=== PATIENT | female | born 1995 | race Caucasian/White ===

== ENCOUNTER 2016-05-10 20:07 | Emergency (ER) | payer OTHER ==
[~2016-05-10] VITALS: Ht 170.2 cm; Wt 68.0 kg
[~2016-05-10 20:07] MED LIST: AMOXICILLIN500 M3 PO; AMOXIL500 MG PO; AURALGAN 14 ML14 ML AS; BACTRIM DS TAB1 EACH PO; DOCUSATE SODIU100 MG PO; MOTRIN 800MG T800 MG PO; PERCOCET 325 MG1 TA2 PO; PREDNISONE10 M2 PO
[2016-05-10 20:17] VITALS: BP 119/71
--- NOTE | 2016-05-10 21:11 | ED INFLUENZA/URI COMPLAINT ---
History of Present Illness General Chief Complaint: General Adult Stated Complaint: ?SEIZURE 3DAYS AGO, NOW BODY SORE,LÓPEZ,VOMITING Source: patient, old records Exam Limitations: no limitations Vital Signs & Intake/Output Vital Signs & Intake/Output Vital Signs Date Time Temp Pulse Resp B/P Pulse O2 O2 Flow FiO2 Ox Delivery Rate 05/10 2016 99.7 98 18 119/71 Room Air Allergies Coded Allergies: NO KNOWN ALLERGIES (10/31/14) Reconcile Medications Amoxicillin 500 MG TABLET 1 TAB PO TID ABCESS Docusate Sodium 100 MG SGL 100 MG PO AT BEDTIME NEEDED PRN STOOL SOFTENER Oseltamivir Phosphate (Tamiflu) 75 MG CAPSULE 1 CAP PO BID influenza OXYCODONE HCL/ACETAMINOPHEN (Percocet 5-325 MG Tablet) 325 MG/5 MG TAB 1 TAB PO Q4P PRN PAIN SCALE 7-8 Prednisone 10 MG TABLET 1 TAB PO DAILY POISON TABITHA TAKE 4 TABS FOR 3 DAYS THEN TAKE 3 TABS FOR 3 DAYS THEN TAKE 2 TABS FOR 3 DAYS THEN TAKE 1 TAB FOR 3 DAYS Sulfamethoxazole/Trimethoprim (Bactrim Ds Tablet) 1 EACH TABLET 1 TAB PO BID ABCESS Yibuprofen (Motrin 800MG Tab) 800 MG TAB 800 MG PO Q6P PRN PAIN SCALE 4-6 Triage Note: PT TO ED WITH MULTIPLE COMPLAINTS:FATIGUE, HEADACHE, JOINT PAIN, ALL EXTEMETIES HURT, PAIN ON SIDE OF LEFT BREAST. STATES WAS RACHING UP TO SHUT OFF A LIGHT AND "MY BODY JUST STARTED SHAKING WHILE I WAS WALKING. AND THEN I JUST SNAPPED OUT OF IT. I THOUGHT I MIGHT HAVE HAD A MUSCLE SPASM" DENIES LOC DURING EPISODE, DENIES FALL DURING EPISODE. STATES SOMETIMES GETS LIGHT TREMORS THAT STOP ON THEIR OWN. DENIES DIZZINESS. UNSURE OF VEVERS AT HOME. TEMP 99.7 TA IN TRIAGE. COUGH NOTED. DENIES SORE THROAT Triage Nurses Notes Reviewed? yes Onset: Abrupt Duration: day(s): (1), constant Timing: recent history Severity: mild, moderate Severity Numbers: 4 No Modifying Factors: none Associated Symptoms: cough, fever/chills, muscle aches, nasal congestion, nasal drainage : No Patient currently breastfeeds: No HPI: This is a 20-year-old female who presents to emergency room complaining of a cough nonproductive for the past 1 week associated with generalized bodyaches congestion and rhinorrhea subjective fever chills since yesterday. The patient states that she was walking in her house going to turn off a light switch when she began to shake. The patient did not fall to the ground or lose consciousness during this episode. She denies any chest pain shortness of breath urinary symptoms abdominal pain nausea vomiting or diarrhea. She is not taken anything for her symptoms. There are multiple sick contacts at home with similar symptoms there are no modifying factors or associated symptoms otherwise. Past History Travel History Traveled to [place] past 21 day No Medical History Any Pertinent Medical History? see below for history Neurological: NONE EENT: NONE Cardiovascular: NONE Respiratory: NONE Gastrointestinal: NONE Hepatic: NONE Renal: NONE Musculoskeletal: NONE Psychiatric: NONE Endocrine: NONE Blood Disorders: NONE Cancer(s): NONE MEDICAL SUPERINTENDENT/Reproductive: NONE Surgical History Surgical History: non-contributory, N Psychosocial History What is your primary language Uzbek Tobacco Use: Current Daily Use Daily Tobacco Use Amount/Type: =< 4 Cigarettes daily ETOH Use: occasional use Illicit Drug Use: denies illicit drug use Family History Hx Contributory? No Review of Systems Review of Systems Constitutional: Reports: see HPI. All Other Systems: Reviewed and Negative Comments Review of systems: See HPI, All other systems negative. Constitutional, chills fever, no malaise HEENT: No visual changes no sore throat congestion, Cardiovascular: No chest pain , no palpitation , Skin, no rashes, no change in skin Respiratory: No dyspnea ncough no sputum no hemoptysis GI: No nausea no vomiting, no diarrhea, : No dysuria Muscle skeletal: No joint pain, no joint swelling, no back pain, no neck pain, Neurologic: No numbness no headache Psych: No stress Heme/endocrine: No bruising no bleeding Immunology: No lymphadenopathy Physical Exam Physical Exam General Appearance: well developed/nourished, alert, awake, comfortable Ears, Nose, Throat: normal ENT inspection, moist mucous membrane, hearing grossly normal, Tympanic normal, pharynx normal Comments: Well-developed well-nourished patient in no apparent distress. Head/Face: Atraumatic, no maxillary/frontal sinus tenderness, no facial swelling Eyes: PERRL, EOMI, no conjunctival injection. No nystagmus Ear:External auditory canal and Tympanic membranes clear, no erythema, no FB. Nose: atraumatic.Normal inspection: No bleeding Throat: Moist mucous membranes.Pharynx normal. No pharyngeal erythema/exudate seen. No stridor/drooling or assymetry. No swelling or edema. Neck: Supple, no lymphadenopathy, FROM Back: FROM, Nontender Cardiovascular: Regular rate and rhythms no murmurs rubs or gallops, Respiratory: No respiratory distress. Patient speaking in full complete sentences. Breath sounds clear to auscultation bilaterally: NO W/R/R Extremities: full range of motion Neuro: Alert and oriented x3 Skin: Warm & dry;No appreciable rash on exposed skin Psych: Mood affect normal, normal memory normal judgment. Core Measures Severe Sepsis Present: No Septic Shock Present: No Progress Differential Diagnosis: influenza, otitis, pneumonia, pharyngitis, sinusitis, bronchitis Plan of Care: Orders Procedure Date/time Status RAPID VIRAL INFLUENZA A 05/10 2035 Complete Sent from triage patient clinically appears well discussed with the patient that her episode does not sound consistent with a seizure. Discussed with her her flu swab results need for close HER primary care physician Tylenol Motrin for subjective fevers chills she is afebrile nontoxic appearing here. Prescription for Tamiflu was called into her pharmacy they feel comfortable with plan discussed with herneed to return anytime sooner with any concerns cleared for discharge (BECCA MARTINEZ,RASHI) Initial ED EKG: none Departure Departure Time of Disposition: 2129 Disposition: HOME OR SELF CARE Condition: Stable Clinical Impression Primary Impression: Influenza Referrals: JAZMIN FLOOD MD (PCP/Family) Additional Instructions: tamiflu as directed. tylenol or motrin every 4-6 hours for fever, chills, bodyaches as needed. Ddrink plenty of fluids. follow up with your pmd this week, return with any concerns this prescription was sent to your pharmacy Departure Forms: Customer Survey General Discharge Information Prescriptions: Current Visit Scripts Oseltamivir Phosphate (Tamiflu) 1 CAP PO BID #10 CAP
[2016-05-10] MEDS ORDERED: TAMIFLU75 M1 PO (21:32)
== END 2016-05-10 21:40 ==
LOC: ERH 20:07
DX: J11.1 Influenza due to unidentified influenza virus with other respiratory manifestations (principal)
CPT/HCPCS: 87804; 87804-59